=== PATIENT | female | born 2005 | race African-American/Black ===

== ENCOUNTER 2024-12-23 06:14 | Emergency (ER) | payer OTHER ==
[~2024-12-23] VITALS: Ht 165.1 cm; Wt 66.2 kg
[2024-12-23] MEDS ORDERED: ACET32TAB PO (07:54)
[2024-12-23 08:45] VITALS: BP 102/55; TEMP 97.6; O2SAT 100
== END 2024-12-23 08:54 | disposition home or self-care (01) ==
LOC: M ED 06:14
DX: S93.402A Sprain of unspecified ligament of left ankle, initial encounter (principal); Y92.9 Unspecified place or not applicable; Y93.9 Activity, unspecified; Y99.9 Unspecified external cause status; W01.0XXA Fall on same level from slipping, tripping and stumbling without subsequent striking against object, initial encounter; Z88.0 Allergy status to penicillin; Z88.1 Allergy status to other antibiotic agents; Z79.1 Long term (current) use of non-steroidal anti-inflammatories (NSAID)